=== PATIENT | female | born 1965 | race Caucasian/White ===

== ENCOUNTER 2017-03-01 18:48 | Emergency (ER) | payer OTHER ==
[~2017-03-01] VITALS: Ht 175.3 cm; Wt 90.7 kg
[2017-03-01] MEDS ORDERED: MOBIC15 MG PO (19:34)
[2017-03-01 20:25] VITALS: BP 177/99
== END 2017-03-01 20:26 | disposition home or self-care (01) ==
LOC: ER 18:48
DX: S90.31XA Contusion of right foot, initial encounter (principal); W20.8XXA Other cause of strike by thrown, projected or falling object, initial encounter; Y93.89 Activity, other specified; Y92.89 Other specified places as the place of occurrence of the external cause; Y99.0 Civilian activity done for income or pay